=== PATIENT | male | born 1985 | race Caucasian/White ===

== ENCOUNTER 2017-01-11 19:15 | Emergency (ER) | payer BC ==
--- NOTE | 2017-01-29 13:42 | ER ---
ADMIT: 01/11/2017 RM/LOC: ER [facility] MR#: [id number] [address] [id number] [place] [address] Emergency Room Report SEX: M AGE: 31 : 1985 DATE: 01/11/2017 SUBJECTIVE: The patient is a 31-year-old, who presents to the emergency room with left lower chest pain for one day, comes and goes. He is a large gentleman. He said he worked all day on his feet, now he has pain in the left chest and calf, 0.25-0.26 inches below left nipple. REVIEW OF SYSTEMS: Otherwise negative. PAST MEDICAL HISTORY: Negative. ALLERGIES: PENICILLIN. HE SAYS HE HAS FACTOR V LEIDEN IN THE FAMILY, SO HE IS CONCERNED ABOUT A POSSIBLE DVT. HE IS NOT SHORT OF BREATH. HE DOES NOT SEEM ANXIOUS, ALTHOUGH HIS BLOOD PRESSURE IS 182/91, HEART RATE IS 83, RESPIRATIONS 18, TEMP 96.9, O2 SATS 99%. PHYSICAL EXAMINATION SEEMS WITHIN NORMAL LIMITS EXCEPT FOR THE LEFT LOWER QUADRANT ABDOMINAL PAIN. HE SAYS, IT RADIATES TO THE RIGHT NOW. NO SPLENOMEGALY OR MASSES. BOWEL SOUNDS ARE NORMAL. HE DID NOT HAVE ANY CALF TENDERNESS UPON EXAMINATION. HE DID MENTION AND POINTED TO THE BACK OF HIS KNEE. I WENT AHEAD AND ORDERED A VENOUS DOPPLER TO RULE OUT DVT, AND DID A CHEST X-RAY, WHICH BOTH CAME BACK NEGATIVE. ALSO, DID A UA, HE HAD RBCS 2. CLINICAL IMPRESSION: Abdominal pain, left upper quadrant with mild hematuria. He was encouraged to follow up with his primary provider next day. His main concern was deep vein thrombosis and I told him that we would do an ultrasound, but they will be other testing that needed to be done as a followup. Follow up with Dr. Gregorio on Friday. Ultram for pain control. Return to ER if short of breath or increased pain in spite of medication. ASHLEY Ferrer / Jose Eduardo Vargas MD / pawan JOB #: [id number] CC: Jose Eduardo Vargas MD, Attending Physician Misael Gregorio DO, Family Physician
== END 2017-01-11 21:30 | disposition home or self-care (01) ==
LOC: ER 19:15
DX: R31.9 Hematuria, unspecified (principal); R10.12 Left upper quadrant pain; Z88.0 Allergy status to penicillin